=== PATIENT | male | born 1975 | race African-American/Black ===

== ENCOUNTER → 2017-10-13 | Outpatient (CLI) | payer OTHER ==
--- NOTE | 2017-10-14 18:36 | DIAGNOSTIC IMAGING REPORT ---
CHEST 2 VIEWS ROUTINE CLINICAL HISTORY: Cough. Chest congestion. COMPARISON STUDY: No previous studies for comparison. FINDINGS: Lung volumes are normal. There is no pneumothorax. There is a trace right pleural effusion. Cardiac size is normal. Mediastinal contours are normal. There is no consolidation to suggest pneumonia. Pulmonary vascularity is normal. IMPRESSION: 1. Trace right pleural effusion. 2. No consolidation to suggest pneumonia. 3. No evidence of pulmonary edema. Electronically signed by: Fermin Guidry M.D. 10/14/2017 6:35 PM Dictated Date/Time: 10/14/2017 6:33 PM
== END | disposition home or self-care (01) ==
LOC: C.RDSM 14:05
PROVIDERS: ATTEND Physical Medicine & Rehabilitation
DX: R09.89 Other specified symptoms and signs involving the circulatory and respiratory systems (principal); J90 Pleural effusion, not elsewhere classified